=== PATIENT | female | born 2000 | race Caucasian/White ===

== ENCOUNTER 2019-08-25 14:26 | Emergency (ER) | payer OTHER ==
--- NOTE | 2019-08-25 15:55 | ED ---
Syncope/Near Syncope - HPI Summary HPI Summary: 19 year old F presenting to [facility] with a chief complaint of syncope at 12:00 today. Patient reports dizziness and lightheadedness prior to her syncopal episode. She also reports nausea and diaphoresis. The patient rates the pain 0/ 10 in severity. Symptoms aggravated by nothing. Symptoms alleviated by nothing. Patient reports she had not eaten prior to her syncope. She denies any vomiting , chest pain, shortness of breath, diarrhea, dysuria, or hitting her head. Medication list reviewed. Allergy list reviewed. - History Of Current Complaint Chief Complaint: EDSyncope Time Seen by Provider: 08/25/19 15:49 Hx Obtained From: Patient Onset/Duration: Sudden Onset Associated Head Trauma: No Aggravating Factor(s): Nothing Alleviating Factor(s): Nothing Associated Signs And Symptoms: Negative - Vomiting, chest pain, shortness of breath, diarrhea, dysuria, Diaphoresis, Dizzy, Lightheadedness, Other - Nausea - Allergies/Home Medications Allergies/Adverse Reactions: Allergies Allergy/AdvReac Type Severity Reaction Status Date / Time No Known Allergies Allergy Verified 08/25/19 14:43 Home Medications: Home Medications NK [No Home Medications Reported] 08/25/19 [History Confirmed 08/25/19] PMH/Surg Hx/FS Hx/Imm Hx Endocrine/Hematology History: Denies: Hx Diabetes Cardiovascular History: Denies: Hx Hypertension - Surgical History Surgical History: None Infectious Disease History: No Infectious Disease History: Denies: Traveled Outside the [place] in Last 30 Days - Family History Known Family History: Negative: Hypertension, Diabetes - Social History Alcohol Use: None Hx Substance Use: No Substance Use Type: Reports: None Hx Tobacco Use: No Smoking Status (MU): Never Smoked Tobacco Review of Systems Positive: Skin Diaphoresis Negative: Chest Pain Negative: Shortness Of Breath Positive: Nausea. Negative: Vomiting, Diarrhea Negative: dysuria Neurological/Mental Status: Other - Dizziness, lightheadedness Positive: Syncope All Other Systems Reviewed And Are Negative: Yes Physical Exam - Summary Physical Exam Summary: Constitutional: Well-developed, Well-nourished, Alert. (-) Distressed Skin: Warm, Dry HENT: Normocephalic; Atraumatic Eyes: Conjunctiva normal Neck: Musculoskeletal ROM normal neck. (-) JVD, (-) Stridor, (-) Tracheal deviation Cardio: Rhythm regular, rate normal, Heart sounds normal; Intact distal pulses; The pedal pulses are 2+ and symmetric. Radial pulses are 2+ and symmetric. (-) Murmur Pulmonary/Chest wall: Effort normal. (-) Respiratory distress, (-) Wheezes, (-) Rales Abd: Soft, (-) tenderness, (-) Distension, (-) Guarding, (-) Rebound Musculoskeletal: (-) Edema Lymph: (-) Cervical adenopathy Neuro: Alert, Oriented x3 Psych: Mood and affect Normal Triage Information Reviewed: Yes Vital Signs On Initial Exam: Initial Vitals Temp Pulse Resp BP Pulse Ox 98.3 F 78 16 106/68 99 08/25/19 14:39 08/25/19 14:39 08/25/19 14:39 08/25/19 14:39 08/25/19 14:39 Vital Signs Reviewed: Yes Procedures - Sedation Patient Received Moderate/Deep Sedation with Procedure: No Diagnostics - Vital Signs Vital Signs Temp Pulse Resp BP Pulse Ox 08/25/19 14:39 98.3 F 78 16 106/68 99 - Laboratory Result Diagrams: 08/25/19 16:06 08/25/19 16:06 Lab Statement: Any lab studies that have been ordered have been reviewed, and results considered in the medical decision making process. - EKG 15:59 Cardiac Rate: NL - 62 BPM EKG Rhythm: Sinus Rhythm Summary of EKG Findings: No ischemic changes. Dr. Taylor has reviewed and interpreted this EKG. Course/Dx Course Of Treatment: 19 year old F presenting to [facility] with a chief complaint of syncope at 12:00 today. Patient reports dizziness and lightheadedness prior to her syncopal episode. She also reports nausea and diaphoresis. Physical exam findings reveal no abnormalities. An EKG reveals sinus rhythm rate of 62, no ischemic changes. Laboratory results with no significant abnormalities except for an MCH of 33 and BUN/creatinine ratio of 22.4. Patient will be discharged with follow up from Dr. Grajeda. The patient is agreeable with this plan. - Diagnoses Provider Diagnoses: Syncope - Critical Care Time Critical Care Statement: Critical care time is provided exclusive of any time spent performing procedures. Discharge ED - Sign-Out/Discharge Documenting (check all that apply): Patient Departure - Discharge Plan Condition: Stable Disposition: HOME Patient Education Materials: Syncope (ED) Referrals: Taras GREEN,Tee Palacios [Primary Care Provider] - 2 Days Additional Instructions: Follow-up with your PCP in 1-2 days. Return to the emergency department for changing or worsening symptoms. - Billing Disposition and Condition Condition: STABLE Disposition: Home - Attestation Statements Document Initiated by Scribe: Yes Documenting Scribe: Lori Villagomez Provider For Whom Scribe is Documenting (Include Credential): Azam Taylor DO Scribe Attestation: Lori Mccray scribed for Azam Taylor DO on 08/25/19 at 1832. Scribe Documentation Reviewed: Yes Provider Attestation: The documentation as recorded by the Lori hester accurately reflects the service I personally performed and the decisions made by , Azam Taylor DO Status of Scribe Document: Viewed
[2019-08-25 16:32] LABS: ABS Lymphocytes 1.5 10^3/ul (1.0-4.8); ABS Monocytes 0.5 10^3/ul (0-0.8); ABS Neutrophils 6.7 10^3/ul (1.5-7.7); Eosinophil % 0.2 %; Hematocrit 41 % (35-47); Hemoglobin 14.3 g/dL (12.0-16.0); Lymphocyte % 16.8 %; Mean Corpuscular HGB Conc 35 g/dL (31-36); Mean Corpuscular Hemoglobin 33 pg (27-31); Mean Corpuscular Volume 93 fL (80-97); Mean Platelet Volume 7.8 fL (7.4-10.4); Nucleated Red Blood Cells % 0.1; Platelet Count 200 10^3/uL (150-450); Red Blood Count 4.42 10^6 /uL (3.70-4.87); Red Cell Distribution Width 13 % (10-15); White Blood Count 8.7 10^3/uL (3.5-10.8)
[2019-08-25 16:39] LABS: ALT 8 U/L (7-52); AST 16 U/L (13-39); Albumin 4.3 g/dL (3.2-5.2); Albumin/Globulin Ratio 1.7 (1-3); Alkaline Phosphatase 51 U/L (34-104); Anion Gap 5 mmol/L (2-11); BUN/Creatinine Ratio 22.4 (8-20); Blood Urea Nitrogen 17 mg/dL (6-24); CO2 Carbon Dioxide 24 mmol/L (22-32); Chloride 109 mmol/L (101-111); EGFR African American 117.4 (>60); Globulin 2.6 g/dL (2-4); Glucose 79 mg/dL (70-100); Sodium 138 mmol/L (135-145); Total Protein 6.9 g/dL (6.4-8.9)
[2019-08-25 16:41] LABS: HCG Pregnancy < 0.60 mIU/mL
[2019-08-25 18:36] VITALS: BP 112/60
== END 2019-08-25 17:40 | disposition home or self-care (01) ==
LOC: ED 14:26
DX: R55 Syncope and collapse (principal); R42 Dizziness and giddiness; R11.0 Nausea
CPT/HCPCS: 36415; 80053; 84702; 85025; 93005; 99283